=== PATIENT | female | born 1975 | race Caucasian/White ===

== ENCOUNTER 2016-10-26 19:34 | Emergency (ER) | payer MEDICAID ==
[~2016-10-26] VITALS: Ht 160 cm; Wt 81.6 kg
[2016-10-26 19:47] VITALS: BP_SYST 118
--- NOTE | 2016-10-26 20:00 | NUR ---
Patient to ER bed 07 to gown for evaluation. Side rails up. Report given to ZULEMA Wells.
--- NOTE | 2016-10-26 20:08 | NUR ---
ER at bedside examining patient.
[2016-10-26 20:18] LABS: BILIRUBIN,URINE NEGATIVE (NEGATIVE); CLARITY/URINE CLEAR (CLEAR); COLOR,URINE YELLOW (YELLOW); GLUCOSE,URINE NEGATIVE (NEGATIVE); KETONES,URINE NEGATIVE (NEGATIVE); LEUKOCYTE ESTERASE ,URINE NEGATIVE (NEGATIVE); NITRITE, URINE NEGATIVE (NEGATIVE); PH,URINE 5.5 (5.0-8.0); PROTEIN URINE NEGATIVE (NEGATIVE); UROBILINOGEN,URINE 0.2 (0.2-1.0)
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
[2016-10-26 20:23] LABS: BLOOD, URINE TRACE (NEGATIVE)
[2016-10-26 20:39] LABS: BACTERIA,URINE FEW /HPF (None Seen); MUCUS,URINE 1+ /LPF (None Seen); RBC,URINE NONE SEEN /HPF (0-3); WBC,URINE 0-3 /HPF (0-3)
[2016-10-26 21:08] VITALS: BP_SYST 118
--- NOTE | 2016-10-26 21:08 | NUR ---
Patient given written and verbal discharge instructions and verbalizes understanding. ER MD discussed with patient the results and treatment provided. Patient in stable condition. ID arm band removed. Rx of Motrin given. Patient educated on pain management and to follow up with PMD in 2-3 days. Pain Scale 0/10 Opportunity for questions provided and answered.
--- NOTE | 2016-10-26 21:32 | NUR ---
Marla storm in ED - 10/26/16 at 2239 by [email or web address] Patient left arm placed in velcro arm brace. Patient tolerated well.
== END 2016-10-26 21:08 | disposition home or self-care (01) ==
LOC: SED 19:34
DX: S63.502A Unspecified sprain of left wrist, initial encounter (principal); X58.XXXA Exposure to other specified factors, initial encounter; Y93.89 Activity, other specified; Y92.89 Other specified places as the place of occurrence of the external cause; Y99.8 Other external cause status
CPT/HCPCS: 81000-TC; 81025; 99283

== ENCOUNTER 2018-11-05 12:39 | Emergency (ER) | payer MEDICAID ==
[~2018-11-05] VITALS: Ht 157.5 cm; Wt 87.5 kg
[2018-11-05 12:46] VITALS: BP_SYST 133
[2018-11-05] MEDS ORDERED: KETOROLAC TROMETHAMINE 60 MG/2 ML VIAL IM ONE (13:15)
[2018-11-05 14:59] VITALS: BP_SYST 139
== END 2018-11-05 14:55 | disposition home or self-care (01) ==
LOC: SED 12:39
DX: R07.89 Other chest pain (principal); G43.909 Migraine, unspecified, not intractable, without status migrainosus
CPT/HCPCS: 71045; 81025; 93005; 96372; 99283; J1885

== ENCOUNTER 2019-03-16 17:37 | Emergency (ER) | payer MEDICAID ==
[~2019-03-16] VITALS: Ht 160 cm; Wt 84.4 kg
[2019-03-16 18:15] VITALS: BP_SYST 123
--- NOTE | 2019-03-16 19:51 | NUR ---
Patient to ER bed 6 to gown for evaluation. Side rails up. Report given to SPIKE POOLE.
--- NOTE | 2019-03-16 20:00 | NUR ---
Pt presents to ER with c/o left flank pain and urinary problems. Pt A&Ox4. Pt states she was here 3 weeks ago and was diagnosed with Kidney Infection and prescribed Cipro. Pt states she finished all antibiotics and still has the same symptoms. Pt states she has pain in left lower abdomen that radiates to left flank. Pt states she has urinary frequency and burning with urination. Pt states history of kidney stones. Will continue to monitor.
--- NOTE | 2019-03-16 20:08 | NUR ---
ER Dr. Hamilton at bedside examining patient.
[2019-03-16] MEDS ORDERED: NACL 0.9% 1,000 ML IV ONE (20:15)
[2019-03-16] MEDS ORDERED: cefTRIAXone 1 GM IVPB PREMIX 50 ML IV ONE (20:15)
[2019-03-16] MEDS ORDERED: KETOROLAC TROMETHAMINE 30 MG VIAL IVP ONE (20:15)
--- NOTE | 2019-03-16 20:50 | NUR ---
# 20 gauge angiocath placed to L AC. Use of asceptic technique. Opsite placed over site. Blood return noted. Flushed with 10 cc of normal saline. No evidence of infiltration noted. Patient tolerated well.
--- NOTE | 2019-03-16 20:52 | NUR ---
Pt medicated per MD orders. Pt tolerated well. Will continue to monitor.
[2019-03-16 20:59] LABS: BILIRUBIN,URINE NEGATIVE (NEGATIVE); BLOOD, URINE 2+ (NEGATIVE); CLARITY/URINE CLOUDY (CLEAR); COLOR,URINE YELLOW (YELLOW); GLUCOSE,URINE NEGATIVE (NEGATIVE); KETONES,URINE NEGATIVE (NEGATIVE); LEUKOCYTE ESTERASE ,URINE TRACE (NEGATIVE); NITRITE, URINE POSITIVE (NEGATIVE); PH,URINE 6.5 (5.0-8.0); PROTEIN URINE TRACE (NEGATIVE); UROBILINOGEN,URINE 0.2 (0.2-1.0)
[2019-03-16 21:41] LABS: BACTERIA,URINE MANY /HPF (None Seen); RBC,URINE 20-50 /HPF (0-3); WBC,URINE >100 /HPF (0-3)
--- NOTE | 2019-03-16 22:10 | NUR ---
Pt sleeping in bed with no complaints. Vital signs stable. Will continue to monitor.
[2019-03-16 23:00] VITALS: BP_SYST 115
--- NOTE | 2019-03-16 23:00 | NUR ---
Patient given written and verbal discharge instructions and verbalizes understanding. ER MD Hamilton discussed with patient the results and treatment provided. Patient in stable condition. ID arm band removed. IV catheter removed intact and dressing applied, no active bleeding. Rx of macrobid given. Patient educated on pain management and to follow up with PMD. Pain Scale 1/10. Opportunity for questions provided and answered. Medication side effect fact sheet provided.
== END 2019-03-16 23:00 | disposition home or self-care (01) ==
LOC: SED 17:37
DX: N39.0 Urinary tract infection, site not specified (principal)
CPT/HCPCS: 36415; 81000; 81025; 87040; 87086; 96365; 96375; 99283; J0696; J1885; J7030; 87186-TC

== ENCOUNTER 2020-10-31 16:30 | Emergency (ER) | payer MEDICAID ==
[~2020-10-31] VITALS: Ht 162.6 cm; Wt 86.2 kg
[2020-10-31 17:08] VITALS: BP_SYST 137
--- NOTE | 2020-10-31 17:27 | NUR ---
ER at bedside examining patient.
--- NOTE | 2020-10-31 17:27 | NUR ---
Patient to ER H1 to gown for evaluation. Side rails up.
[2020-10-31] MEDS ORDERED: EPIN0.3P3 IM (17:30)
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
--- NOTE | 2020-10-31 17:35 | NUR ---
Patient given written and verbal discharge instructions and verbalizes understanding. ER MD discussed with patient the results and treatment provided. Patient in stable condition. ID arm band removed. Rx of EPI PEN given. Patient educated on pain management and to follow up with PMD. Pain Scale 0/10. Opportunity for questions provided and answered. Medication side effect fact sheet provided.
[2020-10-31] MEDS ORDERED: EPINEPHrine 1 MG/ML AMP IM ONE (17:45)
[2020-10-31 17:49] VITALS: BP_SYST 132
== END 2020-10-31 17:49 | disposition home or self-care (01) ==
LOC: SED 16:30
DX: S00.86XA Insect bite (nonvenomous) of other part of head, initial encounter (principal); Z79.899 Other long term (current) drug therapy; W57.XXXA Bitten or stung by nonvenomous insect and other nonvenomous arthropods, initial encounter; Y93.89 Activity, other specified; Y92.89 Other specified places as the place of occurrence of the external cause; Y99.8 Other external cause status
CPT/HCPCS: 96372; 99283; J0171